=== PATIENT | female | born 1995 | race Two or more races ===

== ENCOUNTER 2024-08-25 23:18 | Emergency (ER) | payer MEDICAID, SELFPAY ==
[2024-08-25 23:19] VITALS: BMI 31.1
[2024-08-26 00:34] VITALS: BP 128/89; PULSE 70; RESP 18; TEMP 36.6; O2SAT 97
--- NOTE | 2024-08-26 00:45 | XR_ITS ---
Examination: PA lateral chest 2 views Technique: Upright PA lateral chest 2 views Exam date and time: August 26, 2024 1249 hrs. Indications: Coughing beginning one week ago. Findings: Normal heart size. Lungs are clear. The osseous structures are intact Impression: No active disease
--- NOTE | 2024-08-26 00:45 | EDNOTE_ITS ---
Upper Respiratory Inf. RME/HPI General Chief Complaint: Dizziness Stated Complaint: COUGH, EAR PAIN, DIZZINESS Time Seen by Provider: 08/26/24 00:44 Source: patient Arrival date/time: 08/25/24 23:18 29-year-old female presents emergency department complaining of cough, ear pain, and dizziness after coughing spells that been ongoing for 1 week. Mode of arrival: ambulatory Limitations: no limitations Related Data Home Medications ?Medication ?Instructions ?Recorded ?Confirmed calcium carbonate 500 1 tab PO QDAY 08/17/23 08/17/23 mg-simethicone 20 mg chewable tablet Previous Rx's ?Medication ?Instructions ?Recorded ibuprofen 800 mg tablet 800 mg PO TID PRN pain #30 tabs 03/25/24 azithromycin 250 mg tablet See Rx Instructions PO .COMPLEX #6 08/26/24 tabs Allergies Allergy/AdvReac Type Severity Reaction Status Date / Time amoxicillin Allergy Mild Rash Verified 08/25/24 23:18 Penicillins Allergy Mild Rash Verified 08/25/24 23:18 Review of Systems Review of Systems Systems Reviewed: All systems reviewed, normal except as documented Constitutional Constitutional: Reports system reviewed and no additional complaints, except as documented, Denies body ache(s), Denies chills and Denies fever(s) Eyes Eyes: Reports system reviewed and no additional complaints, except as documented and Denies change in vision ENT Ears, Nose, Mouth, and Throat: Reports system reviewed and no additional complaints, except as documented, Denies disequilibrium, Denies dizziness, Reports otalgia, Denies sore throat and Reports vertigo Cardiovascular Cardiovascular: Reports system reviewed and no additional complaints, except as documented, Denies chest pain and Denies dyspnea Respiratory Respiratory: Reports system reviewed and no additional complaints, except as documented, Denies chest congestion, Reports cough and Denies dyspnea Gastrointestinal Gastrointestinal: Reports system reviewed and no additional complaints, except as documented, Denies abdominal pain, Denies nausea and Denies vomiting Musculoskeletal Musculoskeletal: Reports system reviewed and no additional complaints, except as documented, Denies abnormal gait and Denies arthralgias Integumentary/Breasts Skin/Breast: Reports system reviewed and no additional complaints, except as documented, Denies erythema, Denies rash and Denies wounds Neurologic Neurologic: Reports system reviewed and no additional complaints, except as documented, Denies abnormal gait, Denies disequilibrium, Denies dizziness and Reports vertigo Past Medical History Past Medical History NEUROLOGIC: Negative Neurological Disorders CARDIAC: Negative Cardiac Disorders or Congestive Heart Failure RESPIRATORY: Negative Chronic Obstructive Pulmonary Disease (COPD) GASTROINTESTINAL: Negative Gastrointestinal Disorders GENITOURINARY: Negative Genitourinary Disorders or Renal Disease REPRODUCTIVE: Positive Previous Pregnancies; Negative Pelvic Inflammatory Disease MUSCULOSKELETAL: Negative Musculoskeletal Disorders ENDOCRINE: Negative Endocrine Disorders, Diabetes Mellitus Type 1 or Diabetes Mellitus Type 2 HEMATOLOGIC: Negative Blood Disorders OTHER HISTORY: Negative Hospitalization, Autoimmune Disease, Down Syndrome, Developmental Delay, Shingles, Falls, Blood Transfusions, Blood Transfusion Reaction, Anesthesia Reactions, MRSA, VRSA, Vancomycin-Resistant Enterococci, Clostridium Difficile or Cancer Family History FAMILY HISTORY: Positive Family Cardiac Disorders (Mother HTN) and Family Cancer (Grandmother); Negative Family Surgery or Family Anesthesia Reaction Surgical History SURGICAL: Negative Section Social History SMOKING STATUS: Never smoker ED Exam General Limitations: Present no limitations General appearance: Present alert and in no apparent distress Head Head exam: Present atraumatic Eye Eye exam: Present normal appearance, PERRL and EOMI ENT ENT exam: Present normal exam, normal oropharynx and mucous membranes moist Neck Neck exam: Present normal inspection, full ROM and trachea midline Chest Chest inspection: Present normal inspection and symmetric chest wall rise Respiratory Respiratory exam: Present normal lung sounds bilaterally Expanded Respiratory Exam Location: Right: decreased breath sounds and dullness to percussion and Lower: decreased breath sounds and dullness to percussion Cardiovascular Cardiovascular exam: Present regular rate, normal rhythm and normal heart sounds Abdominal Exam Abdominal exam: Present soft and normal bowel sounds Extremities Exam Extremities exam: Present normal inspection and full ROM Back Exam Back exam: Present normal inspection and full ROM Neurological Exam Neurological exam: Present alert, oriented X3 and CN II-XII intact Psychiatric Psychiatric exam: Present normal affect and normal mood Skin Skin exam: Present warm, dry, intact and normal color Course Quality Measures none Orders Category Date Time Status Bedside COVID-19 Antigen Test NOW Care 08/26/24 00:45 Completed Bedside Influenza A&B Antigen Test NOW Care 08/26/24 00:45 Completed XR chest 2V Stat Exams 08/26/24 00:45 Taken Strep A Rapid Stat Lab 08/26/24 00:45 Completed Vital Signs Vital signs: Vital Signs Temperature 97.9 F 08/26/24 00:34 Pulse Rate 70 08/26/24 00:34 Respiratory Rate 18 08/26/24 00:34 Blood Pressure 128/89 H 08/26/24 00:34 Pulse Oximetry (%) 97 08/26/24 00:34 Oxygen Delivery Method Room Air 08/26/24 00:34 97% room air within normal limits. Upper Respiratory Infection MDM Narrative MDM Narrative:: 29-year-old female presents emergency department complaining of cough, ear pain, and dizziness after coughing spells that been ongoing for 1 week. Patient denies any other associated symptoms. Patient strep, COVID, and influenza swabs negative. Right lower lobe decreased lung sounds and dullness during percussion. Patient empirically treated for pneumonia. Patient appears nontoxic and hemodynamically stable. Patient in no visible respiratory distress patient in no visible respiratory distress. Patient instructed to follow-up with primary care provider in 24 to 48 hours and return to emergency department for any worsening symptoms or as needed. Patient data External records reviewed:: [facility] previous records Clinical information provided by:: patient Social determinants that could affect healthcare access:: none Patient has the following chronic illnesses:: See chart How is presenting disease/condition affected by chronic disease/condition?: uneffected by Evaluation data The following diagnostics were reviewed and interpreted by me:: lab results and radiology exam(s) Lab and/or radiology exams considered but not ordered:: Ordered Interpretation Summary: Interpreted by me Medications / Prescriptions Medications or Prescriptions considered but not ordered:: Prescribed Medication administrations:: N/A Consultations Consultation(s) initiated? (list below): No Diagnosis Upper Respiratory Differential Diagnosis: upper respiratory infection, otitis media, viral infection, bronchitis and influenza Most likely diagnosis given after review of the tests above:: Pneumonia Admission Indicated Admission indicated?: not indicated Admission Request Was there a request for admission?: No Disposition Plan Disposition Plan: Discharge Discharge Attestation Discharge Attestation: The patient and all family members were given an opportunity to ask questions and understood the discharge instructions. Discharge instructions specifically effects, indications for sooner follow up or return to the emergency department, and the expected course of current diagnosis. Patient condition: Stable Discharge Plan Plan Patient Disposition: HOME (Self Care) Disposition Comment: Stable Prescriptions/Referrals Prescriptions/Med Rec: New azithromycin 250 mg tablet See Rx Instructions PO .COMPLEX Qty: 6 0RF Rx Instructions: For 250 mg dose pack: take 500 mg today (day 1), then 250 mg for 4 days (days 2-5) No Action Tums Anti-Gas/Antacid 500-20 mg Tablet,Chewable 1 tab PO QDAY ibuprofen 800 mg tablet 800 mg PO TID PRN (Reason: pain) Qty: 30 0RF Referrals: Artur Link MD [Primary Care Provider] - In 1 week Problem List Clinical Impression: Pneumonia Patient/Caregiver Discharge Instructions Discharge Activity: activity as tolerated Education Materials: ED Pneumonia (Adult) Additional Instructions: Take medication as prescribed. Follow-up with primary care provider in 24 to 48 hours. Return to emergency department for any worsening symptoms or as needed. Print Language: Filipino Stand Alone Forms: Mela Award Info., Patient Portal Info Letter PA/CREATIVE RESOURCE MANAGER Supervising Physician PA/CREATIVE RESOURCE MANAGER Supervising Physician: Dr. Vargas FRIAS Attestation MD Attestation The patient was seen by the midlevel practitioner. I, the co-signing physician, was present during the entire ER visit. While I did not physically examine the patient, I was available for consultation as needed.
[2024-08-26 01:22] LABS: Strep A Rapid Negative (Negative)
[2024-08-26 03:10] VITALS: BP 124/77; PULSE 72; RESP 18; TEMP 36.9; O2SAT 98
== END 2024-08-26 03:12 | disposition home or self-care (01) ==
PROVIDERS: Emergency Provider Emergency Medicine; PCP Family Medicine
DX: J18.9 Pneumonia, unspecified organism (principal)
CPT/HCPCS: 71046; 87400; 87651; 87811; 99283

== ENCOUNTER 2025-03-02 16:36 | Emergency (ER) | payer MEDICAID, SELFPAY ==
[2025-03-02 16:37] VITALS: BMI 33.0
[2025-03-02 17:05] VITALS: BP 125/75; PULSE 83; RESP 18; TEMP 36.8; O2SAT 97
--- NOTE | 2025-03-02 17:15 | EDNOTE_ITS ---
ED Syncope RME/HPI General Chief Complaint: Syncope / Near Syncope Stated Complaint: HEADACHE & VERTIGO x1WK; SYNCOPAL EP TODAY X2 Time Seen by Provider: 03/02/25 17:05 Source: patient Arrival date/time: 03/02/25 16:36 30-year-old female tells me she had a syncopal episode that lasted approximately 30 seconds while standing in line at a restaurant. Patient started to feel faint and indicted herself down to the ground and came. She did not hit her head on the ground. Her sister witnessed the episodes patient rapidly feeling faint intermittent related pain relief. Prior to performing complex iron pills. Complaints include leg movement. Mode of arrival: ambulatory Limitations: no limitations RME / HPI MD complaint: loss of consciousness and felt faint Onset (ago): hour(s) -: second(s) (30) Related Data Home Medications ?Medication ?Instructions ?Recorded ?Confirmed calcium carbonate 500 1 tab PO QDAY 08/17/2308/17 mg-simethicone 20 mg chewable tablet Previous Rx's ?Medication ?Instructions ?Recorded ibuprofen 800 mg tablet 800 mg PO TID PRN pain #30 t abs 03/25/24 azithromycin 250 mg tablet See Rx Instructions PO .COM PLEX #6 08/26/24 tabs Allergies Allergy/AdvReac Type Severity Reaction Status Date / Time amoxicillin Allergy Mild Rash Verified 03/02/25 16:39 Penicillins Allergy Mild Rash Verified 03/02/25 16:39 Review of Systems Constitutional Constitutional: Reports system reviewed and no additional complaints, except as documented Eyes Eyes: Reports system reviewed and no additional complaints, except as documented, Denies dry eyes, Denies exophthalmos and Reports floaters Cardiovascular Cardiovascular: Denies chest pain with activity and Denies claudication ED Exam Narrative Physical exam: Patient is able to self-care index finger through her nose. Patient had a tap reveals 2 cans. He will require tactile cues for help. Patient retains full range of motion of the lower extremities and the metric paraplegia. Today flexor neck intact her chin to her chest. She is able to stand & sleeps well General Limitations: Present no limitations General appearance: Present alert and in no apparent distress Head Head exam: Present atraumatic Eye Eye exam: Present normal appearance, PERRL and EOMI ENT ENT exam: Present normal exam, normal oropharynx and mucous membranes moist Neck Neck exam: Present normal inspection, full ROM and trachea midline Chest Chest inspection: Present normal inspection and symmetric chest wall rise Respiratory Respiratory exam: Present normal lung sounds bilaterally Cardiovascular Cardiovascular exam: Present regular rate, normal rhythm and normal heart sounds Abdominal Exam Abdominal exam: Present soft and normal bowel sounds Extremities Exam Extremities exam: Present normal inspection and full ROM Back Exam Back exam: Present normal inspection and full ROM Neurological Exam Neurological exam: Present alert, oriented X3 and other (Patient is able to touch her index finger to her nose, she is able to tap her shins to her heels. Patient has peripheral. EOMs are intact.) Psychiatric Psychiatric exam: Present normal affect and normal mood Skin Skin exam: Present warm, dry, intact and normal color Course Course Course Narrative: Patient will have CT of the head, CBC, CMP, UA, and a hCG. Quality Measures none Orders Category Date Time Status Orthostatic Vitals NOW Care 03/02/25 17:[address] head/brain wo con Stat Exams 03/02/25 19:34 Completed CMP [Comprehensive Metabolic Panel] Stat Lab 03/02/25 18:19 Completed HCG Qualitative,Urine Stat Lab 03/02/25 18:46 Completed UA [Urinalysis] Stat Lab 03/02/25 18:46 Completed Done Vital Signs Vital signs: Vital Signs Temperature 98.3 F 03/02/25 17:05 Pulse Rate 83 03/02/25 17:05 Respiratory Rate 18 03/02/25 17:05 Blood Pressure 125/75 03/02/25 17:05 Pulse Oximetry (%) 97 03/02/25 17:05 Oxygen Delivery Method Room Air 03/02/25 17:05 Pulse ox room air is 97% Syncope MDM Narrative MDM Narrative:: Patient had a CT of the head which demonstrates no acute processes. Her chemistry is well within her normal limits. UA was negative and the patient's not CBC was not obtained. Patient data External records reviewed:: Other (specify) Clinical information provided by:: none Social determinants that could affect healthcare access:: none Patient has the following chronic illnesses:: Patient does not have chronic illness How is presenting disease/condition affected by chronic disease/condition?: no chronic disease Evaluation data The following diagnostics were reviewed and interpreted by me:: lab results Lab and/or radiology exams considered but not ordered:: Lab results were negative. Interpretation Summary: Syncopal episode Medications / Prescriptions Medications or Prescriptions considered but not ordered:: No medications were administered. Medication administrations:: No medications were administered. Consultations Consultation(s) initiated? (list below): No Diagnosis Syncope Differential Diagnosis: syncope due to orthostatic hypotension, complete atrioventricular block, subarachnoid hemorrhage and other Most likely diagnosis given after review of the tests above:: Syncopal episode Admission Indicated Admission indicated?: not indicated Admission Request Was there a request for admission?: No Disposition Plan Disposition Plan: Discharge Discharge Attestation Discharge Attestation: The patient and all family members were given an opportunity to ask questions and understood the discharge instructions. Discharge instructions specifically effects, indications for sooner follow up or return to the emergency department, and the expected course of current diagnosis. Patient condition: Stable Discharge Plan Plan Patient Disposition: HOME (Self Care) Discharge Disposition comment: Patient discharged in no apparent distress Patient condition on transfer: Stable Prescriptions/Referrals Prescriptions/Med Rec: No Action Tums Anti-Gas/Antacid 500-20 mg Tablet,Chewable 1 tab PO QDAY ibuprofen 800 mg tablet 800 mg PO TID PRN (Reason: pain) Qty: 30 0RF azithromycin 250 mg tablet See Rx Instructions PO .COMPLEX Qty: 6 0RF Rx Instructions: For 250 mg dose pack: take 500 mg today (day 1), then 250 mg for 4 days (days 2-5) Referrals: Artur Link MD [Primary Care Provider] - In 1 week Problem List Clinical Impression: Episode of syncope Impression comment: Patient appears to have an event of syncope. After reviewing the labs and speaking with the patient she tells me that she is no longer dizzy but continues to have a headache. Patient/Caregiver Discharge Instructions Discharge Activity: activity as tolerated Education Materials: Causes of Syncope Print Language: Vietnamese Stand Alone Forms: Mela Award Info., Patient Portal Info Letter NED/JANEEN Supervising Physician NED/JANEEN Supervising Physician: Cj Santana
[2025-03-02 18:47] LABS: Alanine Aminotransferase 10 U/L (10-49); Albumin, Serum 4.8 gm/dL (3.5-5.0); Albumin/Globulin Ratio 1.6 (1.2-2.2); Alkaline Phosphatase 114 U/L (46-116); Anion Gap 11 (7-16); Aspartate Amino Transferase 15 U/L (0-34); BUN/Creatinine Ratio 19 Ratio (12-20); Bilirubin,Total 0.4 mg/dL (0.3-1.2); Blood Urea Nitrogen 13 mg/dL (9-23); Calcium 9.4 mg/dL (8.3-10.6); Calcium (Corrected) 9.4 mg/dL (8.5-10.1); Carbon Dioxide 24.4 mMol/L (20.0-31.0); Chloride 106 mMol/L (98-107); Creatinine (Component) 0.7 mg/dL (0.6-1.3); Estimated Creatinine Clearance 113.1 mL/min (>60); Glucose 90 mg/dL (74-106); Osmolality,Calculated 281 (275-295); Potassium 3.8 mMol/L (3.4-5.1); Sodium 141 mMol/L (136-145); Total Protein 7.8 gm/dL (5.7-8.2); eGFR > 60 See Note
[2025-03-02 19:02] LABS: Collection Type, Urine Clean Catch
--- NOTE | 2025-03-02 19:34 | XR_ITS ---
Examination: CT brain head without contrast. 2-D sagittal coronal reconstructions Date and time of exam:March 02, 2025 1943 hours Comparison March 25, 2024 INDICATION: Syncopal episode today CTDI: vol (mGy):49 DLP: (mGycm):880 Technique: Multiple CT axial sections of the brain have been obtained, 5 mm slice thickness. Contrast has not been administered. 2-D sagittal, coronal reconstructions have been obtained Low dose protocols were performed. One or more of the following dose reduction techniques were used; automated exposure control, adjustment of the mA and/or KV according to patient size, use of iterative reconstruction technique. Findings: No significant ventricular enlargement. Intra-axial or extra-axial hemorrhage density is not seen. No mass effect or midline shift Basal cisterns are not remarkable. Fourth ventricle is midline. Cranial vault intact. Impression: Negative for acute hemorrhage, mass effect or midline shift
[2025-03-02 19:40] LABS: Bacteria,Urine Rare; Bilirubin,Urine Negative (Negative); Blood,Urine Negative (Negative); Clarity,Urine Clear (Clear/Hazy); Color,Urine Yellow (Lt Yel-Yel); Glucose, Urine Negative (Negative); Ketones,Urine Negative (Negative); Leukocyte Esterase,Urine Negative (Negative); Nitrite,Urine Negative (Negative); PH,Urine 6.5 (5.0-7.0); Protein,Urine Negative (Neg - Trace); RBC,Urine 1 /hpf (0-3); Specific Gravity,Urine 1.024 (1.001-1.035); Squamous Epithelial Cell,Urine 3 /hpf (0-5); Urobilinogen,Urine Negative mg/dL (0.0-1.0); WBC,Urine 2 /hpf (0-5)
[2025-03-02 19:41] LABS: HCG Qualitative,Urine Negative
== END 2025-03-02 22:27 | disposition home or self-care (01) ==
PROVIDERS: Physician Assistant; Emergency Provider Emergency Medicine; PCP Family Medicine
DX: R55 Syncope and collapse (principal)
CPT/HCPCS: 36415; 70450; 80053; 81001; 81025; 99284